=== PATIENT | male | born 1990 | race American Indian/Alaskan Native ===

== ENCOUNTER 2020-03-22 22:19 | Emergency (ER) | payer OTHER ==
[2020-03-22] MEDS ORDERED: SODIUM CHLORIDE 0.9% 500 ML 500 ML IV ONE (23:37)
[2020-03-22] MEDS ORDERED: ACETAMINOPHEN 500 MG TAB PO STA (23:37)
[2020-03-23] MEDS ORDERED: LOPERAMIDE 2 MG CAP PO ONE (00:02)
[2020-03-23] MEDS ORDERED: ONDANSETRON 4 MG/2 ML INJ IV ONE ×2 (00:02→02:23)
[2020-03-23] MEDS ORDERED: MORPHINE 2 MG/1 ML INJ IV ONE (00:02)
--- NOTE | 2020-03-23 00:02 | Emergency Department Report ---
ED N/V/D HPI - General Chief complaint: Nausea/Vomiting/Diarrhea Stated complaint: STOMACH PAIN, BLOOD IN STOOL Time Seen by Provider: 03/22/20 23:44 Source: patient Mode of arrival: Ambulatory Limitations: No Limitations - History of Present Illness Initial comments: 30-year-old male, history of HIV (currently on antivirals, viral load undetected), presents to ED with vomiting and diarrhea x1 day. Patient reports abdominal pain in the lower abdomen. Reported fever as well. Patient denies any cough, shortness of breath, sore throat, body aches. He denies any known contact with anyone who has tested positive for COVID-19. MD complaint: vomiting, diarrhea, abdominal pain -: days(s) (1) Description of Vomiting: food contents Description of Diarrhea: blood-streaked Associated Abdominal Pain: Yes Radiation: none Severity: moderate Quality: aching Consistency: constant Improves with: none Worsens with: none Associated Symptoms: fever/chills - Related Data Previous Rx's Medication Instructions Recorded Last Taken Type Ciprofloxacin HCl [Ciprofloxacin 500 mg PO Q12HR 7 Days #14 tab 03/23/20 Unknown Rx TAB] Dicyclomine [Bentyl] 20 mg PO QID PRN #20 tablet 03/23/20 Unknown Rx Ondansetron [Zofran Odt] 4 mg PO Q8HR PRN #20 tab.rapdis 03/23/20 Unknown Rx metroNIDAZOLE [Flagyl] 500 mg PO Q12HR 7 Days #14 tab 03/23/20 Unknown Rx Allergies Allergy/AdvReac Type Severity Reaction Status Date / Time Sulfa (Sulfonamide Allergy Hives Verified 03/22/20 23:36 Antibiotics) ED Review of Systems ROS: Stated complaint: STOMACH PAIN, BLOOD IN STOOL Other details as noted in HPI Comment: All other systems reviewed and negative Constitutional: fever ENT: denies: throat pain Respiratory: denies: cough, shortness of breath Gastrointestinal: abdominal pain, vomiting, diarrhea ED Past Medical Hx - Social History Smoking Status: Never Smoker Substance Use Type: None - Medications Home Medications: Home Medications Medication Instructions Recorded Confirmed Last Taken Type Ciprofloxacin HCl [Ciprofloxacin 500 mg PO Q12HR 7 Days #14 tab 03/23/20 Unknown Rx TAB] Dicyclomine [Bentyl] 20 mg PO QID PRN #20 tablet 03/23/20 Unknown Rx Ondansetron [Zofran Odt] 4 mg PO Q8HR PRN #20 tab.rapdis 03/23/20 Unknown Rx metroNIDAZOLE [Flagyl] 500 mg PO Q12HR 7 Days #14 tab 03/23/20 Unknown Rx ED Physical Exam - General Limitations: No Limitations ED Course Vital Signs 03/22/20 03/22/20 03/23/20 23:30 23:52 01:48 Temperature 100.8 F H 102.6 F H 99.4 F Pulse Rate 122 H 117 H 92 H Respiratory 18 17 15 Rate Blood Pressure 141/83 Blood Pressure 122/82 96/56 [Right] O2 Sat by Pulse 100 97 97 Oximetry ED Medical Decision Making - Lab Data Result diagrams: 03/23/20 00:37 03/23/20 00:37 Critical care attestation.: If time is entered above; I have spent that time in minutes in the direct care of this critically ill patient, excluding procedure time. ED Disposition Clinical Impression: Pancolitis Disposition: - TO HOME OR SELFCARE Is pt being admited?: No Condition: Stable Instructions: Infectious Colitis (ED), Acute Diarrhea (ED) Prescriptions: Dicyclomine [Bentyl] 20 mg PO QID PRN #20 tablet PRN Reason: abdominal pain Ciprofloxacin HCl [Ciprofloxacin TAB] 500 mg PO Q12HR 7 Days #14 tab metroNIDAZOLE [Flagyl] 500 mg PO Q12HR 7 Days #14 tab Ondansetron [Zofran Odt] 4 mg PO Q8HR PRN #20 tab.rapdis PRN Reason: Vomiting Referrals: PRIMARY CARE, [Primary Care Provider] - 3-5 Days [facility] [Provider Group] - 3-5 Days Time of Disposition: 02:21
--- NOTE | 2020-03-23 00:03 | XRay Report ---
CHEST 1 VIEW 03/22/2020 11:40 PM INDICATION / CLINICAL INFORMATION: possible Sepsis. COMPARISON: None available. FINDINGS: SUPPORT DEVICES: None. HEART / MEDIASTINUM: No significant abnormality. LUNGS / PLEURA: No significant pulmonary or pleural abnormality. No pneumothorax. ADDITIONAL FINDINGS: No significant additional findings. IMPRESSION: 1. No acute findings. Signer Name: Zoe Etienne MD Signed: 03/22/2020 11:59 PM Workstation Name: [id number]
[2020-03-23 01:08] LABS: Hemoglobin 14.7 gm/dl (11.8-15.2); Mean Corpuscular HGB Conc 33 % (32-34); Mean Corpuscular Volume 84 fl (84-94); Platelet Count 198 K/mm3 (140-440); Red Blood Count 5.26 M/mm3 (3.65-5.03); Red Cell Distribution Width 12.8 % (13.2-15.2)
[2020-03-23 01:11] LABS: Basophils % (Auto) 0.3 % (0.0-1.8); Lymphocytes # (Auto) 0.7 K/mm3 (1.2-5.4); Monocytes # (Auto) 1.4 K/mm3 (0.0-0.8)
[2020-03-23 01:16] LABS: Alanine Aminotransferase 17 units/L (7-56); Albumin 3.9 g/dL (3.9-5); BUN/Creatinine Ratio 8; Blood Urea Nitrogen 10 mg/dL (9-20); Calcium 8.8 mg/dL (8.4-10.2); Hemolysis Index 10
[2020-03-23 01:18] LABS: INR 1.21 (0.87-1.13)
--- NOTE | 2020-03-23 02:12 | Cat Scan Report ---
CT ABDOMEN AND PELVIS WITH CONTRAST INDICATION / CLINICAL INFORMATION: abd pain, vomiting, diarrhea. TECHNIQUE: Axial CT images were obtained through the abdomen and pelvis after 100 mL Omnipaque [address] scans at this location are performed using CT dose reduction for ALARA by means of automated exposure control. COMPARISON: None available. FINDINGS: LOWER CHEST: No significant abnormality. LIVER: No significant abnormality. GALLBLADDER: No significant abnormality. BILE DUCTS: No significant abnormality. PANCREAS: No significant abnormality. SPLEEN: No significant abnormality. ADRENALS: No significant abnormality. RIGHT KIDNEY / URETER: No significant abnormality. LEFT KIDNEY / URETER: No significant abnormality. STOMACH / SMALL BOWEL: No significant abnormality. COLON: Diffuse colonic wall thickening and edema likely representing colitis. No extraluminal gas or abscess. APPENDIX: No significant abnormality. PERITONEUM: No free fluid. No free air. No fluid collection. LYMPH NODES: No significant adenopathy. AORTA / ARTERIES: No significant abnormality. IVC / VEINS: No significant abnormality. URINARY BLADDER: No significant abnormality. REPRODUCTIVE ORGANS: No significant abnormality. ADDITIONAL FINDINGS: None. SKELETAL SYSTEM: No significant abnormality. IMPRESSION: 1. Pancolitis is likely. No extraluminal gas or abscess. Signer Name: Zoe Etienne MD Signed: 03/23/2020 2:08 AM Workstation Name: [id number]
[2020-03-23] MEDS ORDERED: metroNIDAZOLE 500 MG TAB PO ONE (02:18)
[2020-03-23] MEDS ORDERED: levoFLOXacin 500 MG TAB PO ONE (02:19)
[2020-03-23 02:20] VITALS: BP 112/75
[2020-03-23 02:32] LABS: Bilirubin,Urine NEG (Negative); Blood,Urine NEG (Negative); Color,Urine Yellow (Yellow); Mucus,Urine FEW /HPF; Urobilinogen,Urine < 2.0 mg/dL (<2.0)
== END 2020-03-23 03:57 | disposition home or self-care (01) ==
LOC: ED 22:19
DX: K51.00 Ulcerative (chronic) pancolitis without complications (principal); R11.10 Vomiting, unspecified; Z79.2 Long term (current) use of antibiotics; Z79.899 Other long term (current) drug therapy; Z88.2 Allergy status to sulfonamides
CPT/HCPCS: 36415; 71045; 74177; 80053; 81001; 82140; 82805; 85025; 85610; 87040; 87086; 96361; 96374; 96375; 96376; 99285; J2270; J2405; J7040; Q9967

== ENCOUNTER 2020-04-21 20:55 | Emergency (ER) | payer OTHER ==
[2020-04-21] MEDS ORDERED: HYDROcodone/ACETAMINOPHEN 5-325 MG TAB PO STA (23:36)
--- NOTE | 2020-04-22 00:25 | Emergency Department Report ---
ED Male HPI - General Chief complaint: Rectal Pain Stated complaint: PAIN IN RECTUM/HEMORROIDS Time Seen by Provider: 04/21/20 23:11 Source: patient Mode of arrival: Ambulatory Limitations: No Limitations - History of Present Illness Initial comments: 30-year-old -[place] male past medical history of HIV presents emerged department complaining of few days history of constipation followed by taking a laxative and then having some loose bowel movements beginning to develop some rectal pain. Reports no bleeding reports no fever, chills, sweats but reports having some vague drainage coming from his rectal area of an unknown type. Reports no nausea vomiting no painful urination. States he is due to follow-up with his doctor in 1 week -: Gradual Radiation: none Severity: mild, moderate Quality: dull Consistency: constant Improves with: none Worsens with: none denies: denies other symptoms, discharge, swelling, urinary retention, blood in urine, dysuria, nausea/vomiting, incontinence - Related Data Sexually active: Yes Previous Rx's Medication Instructions Recorded Last Taken Type Ciprofloxacin HCl [Ciprofloxacin 500 mg PO Q12HR 7 Days #14 tab 03/23/20 Unknown Rx TAB] Dicyclomine [Bentyl] 20 mg PO QID PRN #20 tablet 03/23/20 Unknown Rx Ondansetron [Zofran Odt] 4 mg PO Q8HR PRN #20 tab.rapdis 03/23/20 Unknown Rx metroNIDAZOLE [Flagyl] 500 mg PO Q12HR 7 Days #14 tab 03/23/20 Unknown Rx Chlorhexidine Gluconate [Hibiclens] 10 ml TP BID #240 liquid 04/22/20 Unknown Rx Clindamycin [Clindamycin CAP] 300 mg PO Q8HR #30 capsule 04/22/20 Unknown Rx Ketorolac [Toradol] 10 mg PO Q6H PRN #15 tablet 04/22/20 Unknown Rx Allergies Allergy/AdvReac Type Severity Reaction Status Date / Time Sulfa (Sulfonamide Allergy Hives Verified 03/22/20 23:36 Antibiotics) ED Review of Systems ROS: Stated complaint: PAIN IN RECTUM/HEMORROIDS Other details as noted in HPI Comment: All other systems reviewed and negative ED Past Medical Hx - Past Medical History Previous Medical History?: Yes Hx HIV: Yes - Surgical History Past Surgical History?: No - Social History Smoking Status: Never Smoker Substance Use Type: None - Medications Home Medications: Home Medications Medication Instructions Recorded Confirmed Last Taken Type Ciprofloxacin HCl [Ciprofloxacin 500 mg PO Q12HR 7 Days #14 tab 03/23/20 Unknown Rx TAB] Dicyclomine [Bentyl] 20 mg PO QID PRN #20 tablet 03/23/20 Unknown Rx Ondansetron [Zofran Odt] 4 mg PO Q8HR PRN #20 tab.rapdis 03/23/20 Unknown Rx metroNIDAZOLE [Flagyl] 500 mg PO Q12HR 7 Days #14 tab 03/23/20 Unknown Rx Chlorhexidine Gluconate [Hibiclens] 10 ml TP BID #240 liquid 04/22/20 Unknown Rx Clindamycin [Clindamycin CAP] 300 mg PO Q8HR #30 capsule 04/22/20 Unknown Rx Ketorolac [Toradol] 10 mg PO Q6H PRN #15 tablet 04/22/20 Unknown Rx ED Physical Exam - General Limitations: No Limitations General appearance: alert, in no apparent distress - Head Head exam: Present: atraumatic, normocephalic, normal inspection - Eye Eye exam: Present: normal appearance, PERRL, EOMI. Absent: scleral icterus, conjunctival injection, periorbital swelling, periorbital tenderness Pupils: Present: normal accommodation - ENT ENT exam: Present: normal exam, mucous membranes moist, TM's normal bilaterally - Neck Neck exam: Present: normal inspection, full ROM - Respiratory Respiratory exam: Present: normal lung sounds bilaterally. Absent: respiratory distress - Cardiovascular Cardiovascular Exam: Present: regular rate, normal rhythm. Absent: systolic murmur, diastolic murmur, rubs, gallop - GI/Abdominal GI/Abdominal exam: Present: soft, normal bowel sounds. Absent: tenderness, guarding, hyperactive bowel sounds, organomegaly, mass, pulsatile mass - Rectal Rectal exam: Present: deferred, normal rectal tone, tenderness (Minimal tenderness is noted there is mild evacuation of pus no induration is noted. Normal rectal tone. No internal rectal mass appreciated. No abscess appreciated in the rectal fold.), other. Absent: fecal impaction - exam: Present: normal inspection External exam: Present: normal external exam - Extremities Exam Extremities exam: Present: normal inspection, full ROM, normal capillary refill. Absent: pedal edema - Back Exam Back exam: Present: normal inspection, full ROM, CVA tenderness (R), CVA tenderness (L). Absent: muscle spasm, paraspinal tenderness - Neurological Exam Neurological exam: Present: alert, oriented X3, CN II-XII intact, normal gait. Absent: motor sensory deficit - Psychiatric Psychiatric exam: Present: normal affect, normal mood. Absent: anxious, manic - Skin Skin exam: Present: warm, dry, intact, normal color. Absent: rash, diaphoretic, erythema ED Course Vital Signs 04/21/20 21:03 Temperature 99.4 F Pulse Rate 114 H Respiratory 17 Rate Blood Pressure 146/91 [Right] O2 Sat by Pulse 98 Oximetry Critical care attestation.: If time is entered above; I have spent that time in minutes in the direct care of this critically ill patient, excluding procedure time. ED Disposition Clinical Impression: Condyloma acuminata, Abscess, Also has a rash at 6:00 resembling a condyloma Disposition: DC-01 TO HOME OR SELFCARE Is pt being admited?: No Does the pt Need Aspirin: No Condition: Stable Instructions: Human Papillomavirus, Skin Abscess, Genital Warts, Viral Illness, Adult Additional Instructions: Please keep the appointment with your doctor for further evaluation of your rectal rash Prescriptions: Clindamycin [Clindamycin CAP] 300 mg PO Q8HR #30 capsule Chlorhexidine Gluconate [Hibiclens] 10 ml TP BID #240 liquid Ketorolac [Toradol] 10 mg PO Q6H PRN #15 tablet PRN Reason: Pain Referrals: PRIMARY MD IZABEL [Primary Care Provider] - 3-5 Days JOHNATHAN ALLISON MD [Staff Physician] - 3-5 Days
[2020-04-22 00:54] VITALS: BP 135/89
== END 2020-04-22 00:54 | disposition home or self-care (01) ==
LOC: ED 20:55
DX: A63.0 Anogenital (venereal) warts (principal); K61.1 Rectal abscess; R21 Rash and other nonspecific skin eruption; Z79.2 Long term (current) use of antibiotics; Z79.899 Other long term (current) drug therapy; Z88.2 Allergy status to sulfonamides
CPT/HCPCS: 99282

== ENCOUNTER 2020-07-13 20:28 | Emergency (ER) | payer OTHER ==
--- NOTE | 2020-07-13 20:53 | Event Note ---
ED Screening Note Date of service: 07/13/20 Time: 20:52 ED Screening Note: 30-year-old -[place] male presents to the emergency room for a day history of abdominal pain mostly in the right upper quadrant. Admits to nausea no vomiting but diarrhea. Denies any hematochezia denies any dysuria no hematuria. Patient has a history of HIV. He is currently on Biktarvy. He is followed by infectious disease provider. Patient states he has had stomach pains in the past review of chart shows he had pancolitis. This initial assessment/diagnostic orders/clinical plan/treatment(s) is/are subject to change based on patients health status, clinical progression and re- assessment by fellow clinical providers in the ED. Further treatment and workup at subsequent clinical providers discretion. Patient/guardian urged not to elope from the ED as their condition may be serious if not clinically assessed and managed. Initial orders include:
[2020-07-13 21:19] LABS: Hematocrit 42.5 % (35.5-45.6); Hemoglobin 14.4 gm/dl (11.8-15.2); Mean Corpuscular HGB Conc 34 % (32-34); Mean Corpuscular Volume 84 fl (84-94); Platelet Count 179 K/mm3 (140-440); Red Blood Count 5.04 M/mm3 (3.65-5.03); Red Cell Distribution Width 13.5 % (13.2-15.2)
[2020-07-13 21:38] LABS: Alanine Aminotransferase 21 units/L (7-56); BUN/Creatinine Ratio 15; Blood Urea Nitrogen 16 mg/dL (9-20); Calcium 8.4 mg/dL (8.4-10.2); Hemolysis Index 35
[2020-07-13 22:36] LABS: Anisocytosis Few; Giant Platelets Few; Total Cells Counted 100
[2020-07-13 23:39] VITALS: BP 128/70
[2020-07-13] MEDS ORDERED: KETOROLAC 30 MG/1 ML INJ IM ONE (23:46)
[2020-07-13] MEDS ORDERED: ONDANSETRON 4 MG ODT TAB PO ONE (23:46)
--- NOTE | 2020-07-13 23:46 | Emergency Department Report ---
ED Abdominal Pain HPI - General Chief Complaint: Nausea/Vomiting/Diarrhea Stated Complaint: ABD PAIN,IRREGULAR BOWLS Time Seen by Provider: 07/13/20 23:36 Source: patient Mode of arrival: Ambulatory Limitations: No Limitations - History of Present Illness Initial Comments: 30-year-old male, history of HIV, presents to ED with complaint of right upper quadrant abdominal pain since yesterday. Patient reports associated nausea, no vomiting. He also reports diarrhea. Patient denies any fever. Patient states he was seen by GI approximately 3 months ago and had a normal colonoscopy. States he is scheduled to go back on 07/22 so that he can have an upper endoscopy. MD Complaint: abdominal pain -: Last night Location: RUQ Radiation: none Migration to: no migration Severity: moderate Quality: aching Consistency: constant Improves With: nothing Worsens With: nothing Associated Symptoms: nausea, diarrhea. denies: vomiting, fever - Related Data Previous Rx's Medication Instructions Recorded Last Taken Type Ciprofloxacin HCl [Ciprofloxacin 500 mg PO Q12HR 7 Days #14 tab 03/23/20 Unknown Rx TAB] Dicyclomine [Bentyl] 20 mg PO QID PRN #20 tablet 03/23/20 Unknown Rx Ondansetron [Zofran Odt] 4 mg PO Q8HR PRN #20 tab.rapdis 03/23/20 Unknown Rx metroNIDAZOLE [Flagyl] 500 mg PO Q12HR 7 Days #14 tab 03/23/20 Unknown Rx Chlorhexidine Gluconate [Hibiclens] 10 ml TP BID #240 liquid 04/22/20 Unknown Rx Clindamycin [Clindamycin CAP] 300 mg PO Q8HR #30 capsule 04/22/20 Unknown Rx Ketorolac [Toradol] 10 mg PO Q6H PRN #15 tablet 04/22/20 Unknown Rx Dicyclomine [Bentyl] 20 mg PO QID PRN #20 tablet 07/14/20 Unknown Rx Ondansetron [Zofran Odt] 4 mg PO Q8HR PRN #20 tab.rapdis 07/14/20 Unknown Rx Allergies Allergy/AdvReac Type Severity Reaction Status Date / Time Sulfa (Sulfonamide Allergy Hives Verified 03/22/20 23:36 Antibiotics) ED Review of Systems ROS: Stated complaint: ABD PAIN,IRREGULAR BOWLS Other details as noted in HPI Comment: All other systems reviewed and negative Constitutional: denies: chills, fever Gastrointestinal: abdominal pain, nausea, diarrhea. denies: vomiting ED Past Medical Hx - Past Medical History Previous Medical History?: Yes Hx HIV: Yes - Surgical History Past Surgical History?: No - Social History Smoking Status: Never Smoker Substance Use Type: None - Medications Home Medications: Home Medications Medication Instructions Recorded Confirmed Last Taken Type Ciprofloxacin HCl [Ciprofloxacin 500 mg PO Q12HR 7 Days #14 tab 03/23/20 Unknown Rx TAB] Dicyclomine [Bentyl] 20 mg PO QID PRN #20 tablet 03/23/20 Unknown Rx Ondansetron [Zofran Odt] 4 mg PO Q8HR PRN #20 tab.rapdis 03/23/20 Unknown Rx metroNIDAZOLE [Flagyl] 500 mg PO Q12HR 7 Days #14 tab 03/23/20 Unknown Rx Chlorhexidine Gluconate [Hibiclens] 10 ml TP BID #240 liquid 04/22/20 Unknown Rx Clindamycin [Clindamycin CAP] 300 mg PO Q8HR #30 capsule 04/22/20 Unknown Rx Ketorolac [Toradol] 10 mg PO Q6H PRN #15 tablet 04/22/20 Unknown Rx Dicyclomine [Bentyl] 20 mg PO QID PRN #20 tablet 07/14/20 Unknown Rx Ondansetron [Zofran Odt] 4 mg PO Q8HR PRN #20 tab.rapdis 07/14/20 Unknown Rx ED Physical Exam - General Limitations: No Limitations General appearance: alert, in no apparent distress - Head Head exam: Present: atraumatic, normocephalic - Eye Eye exam: Present: normal appearance, EOMI - ENT ENT exam: Present: mucous membranes moist - Neck Neck exam: Present: normal inspection - Respiratory Respiratory exam: Present: normal lung sounds bilaterally. Absent: respiratory distress - Cardiovascular Cardiovascular Exam: Present: regular rate, normal rhythm - GI/Abdominal GI/Abdominal exam: Present: soft, tenderness (RUQ tenderness present). Absent: distended - Extremities Exam Extremities exam: Present: normal inspection - Neurological Exam Neurological exam: Present: alert, oriented X3 - Psychiatric Psychiatric exam: Present: normal affect, normal mood - Skin Skin exam: Present: warm, dry, intact, normal color ED Course Vital Signs 07/13/20 07/13/20 20:50 23:38 Temperature 98.1 F 97.8 F Pulse Rate 63 58 L Respiratory 16 18 Rate Blood Pressure 146/83 128/70 O2 Sat by Pulse 96 99 Oximetry ED Medical Decision Making - Lab Data Result diagrams: 07/13/20 21:07 07/13/20 21:07 - Radiology Data Radiology results: report reviewed, image reviewed - Medical Decision Making Labs are unremarkable. Vital signs are stable. Ultrasound is negative for any acute findings. Outpatient follow-up advised. Prescriptions given. Return precautions given. - Differential Diagnosis Pancreatitis, cholelithiasis, cholecystitis Critical care attestation.: If time is entered above; I have spent that time in minutes in the direct care of this critically ill patient, excluding procedure time. ED Disposition Clinical Impression: Abdominal pain Disposition: - TO HOME OR SELFCARE Is pt being admited?: No Condition: Stable Instructions: Abdominal Pain, Adult, [id number] Prescriptions: Dicyclomine [Bentyl] 20 mg PO QID PRN #20 tablet PRN Reason: abdominal pain Ondansetron [Zofran Odt] 4 mg PO Q8HR PRN #20 tab.rapdis PRN Reason: Vomiting Referrals: PRIMARY CARE, [Primary Care Provider] - 3-5 Days Time of Disposition: 01:35
--- NOTE | 2020-07-14 01:26 | Ultrasound Report ---
ULTRASOUND ABDOMEN, LIMITED (RIGHT UPPER QUADRANT) INDICATION: RUQ pain. COMPARISON: None available. FINDINGS: Pancreas: Visualized portion shows no significant abnormality. Liver: Normal. Gallbladder: Normal. Bile ducts: Normal. Common Bile Duct measures 3 mm. Free fluid: None. Additional Findings: None. IMPRESSION: 1. No sonographic abnormality of the right upper quadrant. Signer Name: Marcus Raygoza MD Signed: 07/14/2020 1:22 AM Workstation Name: [id number]
== END 2020-07-14 01:46 | disposition home or self-care (01) ==
LOC: ED 20:28
DX: R10.11 Right upper quadrant pain (principal); Z88.2 Allergy status to sulfonamides; Z79.899 Other long term (current) drug therapy; Z21 Asymptomatic human immunodeficiency virus [HIV] infection status
CPT/HCPCS: 36415; 76705; 80053; 83690; 85007; 85025; 96372; 99284; J1885; Q0162

== ENCOUNTER 2021-03-30 19:07 | Emergency (ER) | payer OTHER ==
[2021-03-30 20:12] VITALS: BP 146/90
--- NOTE | 2021-03-30 21:37 | Emergency Department Report ---
ED Abdominal Pain HPI - General Chief Complaint: Abdominal Pain Stated Complaint: ABD CRAMPS/PALPITATION Source: patient Mode of arrival: Ambulatory Limitations: No Limitations - History of Present Illness Initial Comments: Patient is a 31-year-old -[place] male with no past medical history who presents to the ED with complaint of acute onset persistent diffuse low abdo sean pain for the last 2 days. Patient also complains of intermittent diarrhea for 1 week. Patient states that the pain is present only during the bowel movement. Patient denies nausea, vomiting, fever, chills, dysuria, urinary frequency and urgency, hematuria, hematochezia, chest pain or shortness of breath, back pain, testicular pain or fall. MD Complaint: abdominal pain (diffuse lower abdominal pain), other (diarrhea) -: Sudden, days(s) (2) Location: LLQ, RLQ, suprapubic Radiation: none Migration to: LLQ, RLQ, suprapubic Severity: moderate Severity scale (0 -10): 6 Quality: cramping, aching, sharp Consistency: constant Improves With: rest Worsens With: bowel movement Context: possible food poisoning Associated Symptoms: denies other symptoms, diarrhea, anorexia. denies: nausea, vomiting, fever, chills, constipation, hematemesis, hematochezia, melena, sync ope - Related Data Previous Rx's Medication Instructions Recorded Last Taken Type Ciprofloxacin HCl [Ciprofloxacin 500 mg PO Q12HR 7 Days #14 tab 03/23/20 Unknown Rx TAB] Dicyclomine [Bentyl] 20 mg PO QID PRN #20 tablet 03/23/20 Unknown Rx Ondansetron [Zofran Odt] 4 mg PO Q8HR PRN #20 tab.rapdis 03/23/20 Unknown Rx metroNIDAZOLE [Flagyl] 500 mg PO Q12HR 7 Days #14 tab 03/23/20 Unknown Rx Chlorhexidine Gluconate [Hibiclens] 10 ml TP BID #240 liquid 04/22/20 Unknown Rx Clindamycin [Clindamycin CAP] 300 mg PO Q8HR #30 capsule 04/22/20 Unknown Rx Ketorolac [Toradol] 10 mg PO Q6H PRN #15 tablet 04/22/20 Unknown Rx Dicyclomine [Bentyl] 20 mg PO QID PRN #20 tablet 07/14/20 Unknown Rx Ondansetron [Zofran Odt] 4 mg PO Q8HR PRN #20 tab.rapdis 07/14/20 Unknown Rx Allergies Allergy/AdvReac Type Severity Reaction Status Date / Time Sulfa (Sulfonamide Allergy Hives Verified 03/22/20 23:36 Antibiotics) ED Review of Systems ROS: Stated complaint: ABD CRAMPS/PALPITATION Other details as noted in HPI Constitutional: denies: chills, fever Eyes: denies: eye pain, eye discharge, vision change ENT: denies: ear pain, throat pain Respiratory: denies: cough, shortness of breath, wheezing Cardiovascular: denies: chest pain, palpitations Endocrine: no symptoms reported Gastrointestinal: abdominal pain (Diffuse low abdominal pain), diarrhea. denies: nausea, vomiting Genitourinary: denies: urgency, dysuria Musculoskeletal: denies: back pain, joint swelling, arthralgia Skin: denies: rash, lesions Neurological: denies: headache, weakness, paresthesias Psychiatric: denies: anxiety, depression Hematological/Lymphatic: denies: easy bleeding, easy bruising ED Past Medical Hx - Past Medical History Hx HIV: Yes - Surgical History Past Surgical History?: No - Social History Smoking Status: Never Smoker Substance Use Type: None - Medications Home Medications: Home Medications Medication Instructions Recorded Confirmed Last Taken Type Ciprofloxacin HCl [Ciprofloxacin 500 mg PO Q12HR 7 Days #14 tab 03/23/20 Unknown Rx TAB] Dicyclomine [Bentyl] 20 mg PO QID PRN #20 tablet 03/23/20 Unknown Rx Ondansetron [Zofran Odt] 4 mg PO Q8HR PRN #20 tab.rapdis 03/23/20 Unknown Rx metroNIDAZOLE [Flagyl] 500 mg PO Q12HR 7 Days #14 tab 03/23/20 Unknown Rx Chlorhexidine Gluconate [Hibiclens] 10 ml TP BID #240 liquid 04/22/20 Unknown Rx Clindamycin [Clindamycin CAP] 300 mg PO Q8HR #30 capsule 04/22/20 Unknown Rx Ketorolac [Toradol] 10 mg PO Q6H PRN #15 tablet 04/22/20 Unknown Rx Dicyclomine [Bentyl] 20 mg PO QID PRN #20 tablet 07/14/20 Unknown Rx Ondansetron [Zofran Odt] 4 mg PO Q8HR PRN #20 tab.rapdis 07/14/20 Unknown Rx ED Physical Exam - General Limitations: No Limitations General appearance: alert, in no apparent distress - Head Head exam: Present: atraumatic, normocephalic, normal inspection - Eye Eye exam: Present: normal appearance, PERRL, EOMI Pupils: Present: normal accommodation - ENT ENT exam: Present: normal exam, normal orophraynx, mucous membranes moist, TM's normal bilaterally, normal external ear exam - Neck Neck exam: Present: normal inspection, full ROM - Respiratory Respiratory exam: Present: normal lung sounds bilaterally. Absent: respiratory distress, wheezes, rales, rhonchi, chest wall tenderness, accessory muscle use, decreased breath sounds, prolonged expiratory - Cardiovascular Cardiovascular Exam: Present: regular rate, normal rhythm, normal heart sounds. Absent: systolic murmur, diastolic murmur, rubs, gallop - GI/Abdominal GI/Abdominal exam: Present: soft, normal bowel sounds. Absent: tenderness, guarding, rebound, hyperactive bowel sounds, hypoactive bowel sounds, organomegaly - Extremities Exam Extremities exam: Present: normal inspection, full ROM, normal capillary refill - Back Exam Back exam: Present: normal inspection, full ROM. Absent: tenderness, CVA tenderness (L), muscle spasm, paraspinal tenderness, vertebral tenderness - Neurological Exam Neurological exam: Present: alert, oriented X3, CN II-XII intact, normal gait, reflexes normal - Psychiatric Psychiatric exam: Present: normal affect, normal mood - Skin Skin exam: Present: warm, dry, intact, normal color. Absent: rash ED Course Vital Signs 03/30/21 03/30/21 19:56 20:33 Temperature 98.6 F Pulse Rate 89 48 L Respiratory 16 Rate Blood Pressure 146/90 [Left] O2 Sat by Pulse 98 Oximetry ED Medical Decision Making - Lab Data Result diagrams: 03/30/21 21:37 03/30/21 21:37 - Radiology Data Radiology results: report reviewed, image reviewed - Medical Decision Making This is a 31-year-old -[place] male with no past medical history who presents to the ED with complaint of acute onset persistent diffuse low abdominal pain for the last 2 days. Patient also complains of intermittent diarrhea for 1 week. Patient states that the pain is present only during the bowel movement. In the ED, patient is alert and oriented x3 and is not in any distress. Patient was treated for pain in the ED and labs were also drawn. Patient however left the ED before completing other tests. Patient signed AGAINST MEDICAL ADVICE and left the ED. - Differential Diagnosis Colitis; appendicitis; diverticulitis; UTI; cystitis; kidney stone Critical care attestation.: If time is entered above; I have spent that time in minutes in the direct care of this critically ill patient, excluding procedure time. ED Disposition Clinical Impression: Bilateral lower abdominal pain Disposition: LEFT AGAINST MEDICAL ADVICE Is pt being admited?: No Does the pt Need Aspirin: No Condition: Undetermined Instructions: Abdominal Pain, Adult, [id number] Additional Instructions: Patient left AMA. Time of Disposition: 22:35 Print Language: CUBAN
[2021-03-30 21:57] LABS: Basophils % (Auto) 0.7 % (0.0-1.8); Eosinophils # (Auto) 0.3 K/mm3 (0.0-0.4); Eosinophils % (Auto) 5.8 % (0.0-4.3); Hematocrit 40.7 % (35.5-45.6); Hemoglobin 13.2 gm/dl (11.8-15.2); Lymphocytes # (Auto) 2.5 K/mm3 (1.2-5.4); Lymphocytes % (Auto) 44.8 % (13.4-35.0); Mean Corpuscular HGB Conc 33 % (32-34); Mean Corpuscular Volume 86 fl (84-94); Monocytes # (Auto) 0.6 K/mm3 (0.0-0.8); Monocytes % (Auto) 10.7 % (0.0-7.3); Platelet Count 237 K/mm3 (140-440); Red Blood Count 4.73 M/mm3 (3.65-5.03); Red Cell Distribution Width 13.4 % (13.2-15.2)
[2021-03-30 22:13] LABS: Alanine Aminotransferase 14 units/L (7-56); Albumin 4.4 g/dL (3.9-5); BUN/Creatinine Ratio 9; Blood Urea Nitrogen 11 mg/dL (9-20); Calcium 9.3 mg/dL (8.4-10.2); Hemolysis Index 108
--- NOTE | 2021-04-01 19:03 | Electrocardiograph Report ---
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
== END 2021-03-31 05:26 | disposition left against medical advice (07) ==
LOC: ED 19:07
DX: R10.84 Generalized abdominal pain (principal); R19.7 Diarrhea, unspecified
CPT/HCPCS: 36415; 80053; 83690; 85025; 93005; 99283